=== PATIENT | male | born 1985 | race Caucasian/White ===

== ENCOUNTER 2019-06-18 19:45 | Inpatient (IN) | payer MEDICAID ==
[~2019-06-18] VITALS: Ht 172.7 cm; Wt 87.5 kg
[2019-06-18 20:03] VITALS: Ht 172.7 cm; Wt 87.5 kg
[2019-06-18 20:50] LABS: BASOPHIL % 0 % (0-2); PLATELET COUNT 309 x10^3mcL (130-400); RED CELL DISTRIBUTION WIDTH 21.1 % (11.5-14.5)
[2019-06-18] MEDS ORDERED: LEVO-T75 MCG PO (21:00)
[2019-06-18] MEDS ORDERED: MSC15 PO (21:01)
[2019-06-18 21:02] LABS: rbc morphology (normal/abnorm) ABNORMAL (NORMAL)
[2019-06-18] MEDS ORDERED: ACETAMINOPHEN500 M5 PO (21:03)
[2019-06-18 21:06] LABS: CALCIUM 8.4 mg/dL (8.5-10.1); CARBON DIOXIDE 27.8 mmol/L (21-32); CHLORIDE SERUM 102 mmol/L (98-107); CREATININE SERUM 1.2 mg/dL (0.7-1.3); GFR1 > 60 mL/min; GLUCOSE SERUM 135 mg/dL (74-106); POTASSIUM SERUM 4.7 mmol/L (3.5-5.1); SODIUM SERUM 134 mmol/L (136-145)
[2019-06-18 21:10] LABS: ALKALINE PHOSPHATASE 139 U/L (46-116); ALT/SGPT 12 U/L (16-63); AMYLASE 47 U/L (25-115); AST/SGOT 27 U/L (15-37); BILIRUBIN TOTAL 0.26 mg/dL (0.20-1.00); LIPASE 408 IU/L (73-393)
[2019-06-18 21:15] LABS: TOTAL PROTEIN, SERUM 5.9 g/dL (6.4-8.2)
[2019-06-18 23:58] LABS: CHOLESTEROL/HDL RATIO 3.4
[2019-06-19] VITALS (7 sets, daily range): BP systolic 99–114; BP diastolic 52–69
[2019-06-19 00:03] LABS: FREE T4 0.83 ng/dL (0.76-1.46); T3 TOTAL 0.41 ng/mL; T4(THYROXINE) 5.7 ug/dL (4.7-13.3)
[2019-06-19] MEDS ORDERED: FUROSEMIDE20 MG PO (05:54)
[2019-06-19] MEDS ORDERED: MORPHINE SULFAT30 M2 PO (05:54)
[2019-06-19 07:18] LABS: PLATELET COUNT 298 x10^3mcL (130-400)
[2019-06-19 07:37] LABS: CARBON DIOXIDE 27.2 mmol/L (21-32); CHLORIDE SERUM 101 mmol/L (98-107); CREATININE SERUM 1.2 mg/dL (0.7-1.3); GFR1 > 60 mL/min; GLUCOSE SERUM 108 mg/dL (74-106); POTASSIUM SERUM 5.4 mmol/L (3.5-5.1); SODIUM SERUM 134 mmol/L (136-145)
[2019-06-19 07:49] LABS: BASOPHIL % 0 % (0-2); RED CELL DISTRIBUTION WIDTH 20.9 % (11.5-14.5)
[2019-06-19 08:19] LABS: CALCIUM 8.8 mg/dL (8.5-10.1)
[2019-06-19 16:08] LABS: microscopic required? NO
[2019-06-19 16:24] LABS: UA SPECIFIC GRAVITY >=1.030 (1.005-1.035); urine erythrocyte NEGATIVE (NEGATIVE)
[2019-06-19 16:40] LABS: AMPHETAMINE QUAL UR NONE DETECTED (See below)
== END 2019-06-19 19:10 | disposition home or self-care (01) | DRG 343 ==
LOC: ED 19:45 → MU 22:29
PROVIDERS: Emergency Medicine; ADMIT Internal Medicine
PROC: 0W9G3ZZ Drainage of Peritoneal Cavity, Percutaneous Approach (ICD-10-PCS; principal; 2019-06-19)
DX: C41.9 Malignant neoplasm of bone and articular cartilage, unspecified (principal); R18.0 Malignant ascites; C78.6 Secondary malignant neoplasm of retroperitoneum and peritoneum; E03.9 Hypothyroidism, unspecified; Z79.899 Other long term (current) drug therapy; Z68.26 Body mass index [BMI] 26.0-26.9, adult
CPT/HCPCS: 49083; 83880; 84439; C1729; C9113; G0378; J2001; J2060; J2270; J2765; J3010; J7050; Q0092

== ENCOUNTER 2019-06-21 13:45 | Inpatient (IN) | payer MEDICAID ==
[~2019-06-21] VITALS: Ht 170.2 cm; Wt 86.4 kg
[~2019-06-21 13:45] MED LIST: ACETAMINOPHEN500 M5 PO; FUROSEMIDE20 MG PO; LEVO-T75 MCG PO; MORPHINE SULFAT30 M2 PO; MSC15 PO
[2019-06-21 14:44] LABS: PLATELET COUNT 200 x10^3mcL (130-400)
[2019-06-21 14:53] LABS: RED CELL DISTRIBUTION WIDTH 21.5 % (11.5-14.5)
[2019-06-21 15:28] LABS: CALCIUM 7.9 mg/dL (8.5-10.1); CARBON DIOXIDE 28.1 mmol/L (21-32); CHLORIDE SERUM 101 mmol/L (98-107); CREATININE SERUM 1.2 mg/dL (0.7-1.3); GFR1 > 60 mL/min; GLUCOSE SERUM 100 mg/dL (74-106); POTASSIUM SERUM 4.7 mmol/L (3.5-5.1); SODIUM SERUM 136 mmol/L (136-145)
[2019-06-21 15:33] LABS: ALKALINE PHOSPHATASE 97 U/L (46-116); ALT/SGPT 18 U/L (16-63); AMYLASE 45 U/L (25-115); AST/SGOT 55 U/L (15-37); BILIRUBIN TOTAL 0.22 mg/dL (0.20-1.00); LIPASE 331 IU/L (73-393)
[2019-06-21 15:36] LABS: ALBUMIN 1.4 g/dL (3.4-5.0); TOTAL PROTEIN, SERUM 4.9 g/dL (6.4-8.2)
[2019-06-21 15:37] LABS: BAND NEUTROPHIL 13 % (0-10); BASOPHIL 0 % (0-2); MONOCYTE 3 % (0-7); SEGMENTED NEUTROPHILS 78 % (37-75); rbc morphology (normal/abnorm) ABNORMAL (NORMAL)
[2019-06-21 15:38] LABS: PLATELET MORPHOLOGY PLATELETS NORMAL
[2019-06-21 17:07] LABS: UA SPECIFIC GRAVITY >=1.030 (1.005-1.035); microscopic required? YES; urine erythrocyte NEGATIVE (NEGATIVE)
--- NOTE | 2019-06-21 19:09 | NUR ---
PT WITH PARACENTISIS COMPLETED AT 1800. SEE MD CHARTING. PT WITH 1300ML OF ASPIRATED FLUID.
--- NOTE | 2019-06-21 19:10 | NUR ---
REPORT GIVEN TO GREETING CARD EDITOR RN. PT CONTINUES TO EXPERIENCE PROBLEMS WITH THE BP, WITH A 86/43. WASHING MACHINE ASSEMBLER NOTIFIED OF THE LOW BP. ADMITTING WAS CONTACTED FOR A STAT CONSULT REGARDING BP. PT IS AOX4, RESP E/U. SKIN IS WARM AND DRY.
--- NOTE | 2019-06-21 19:20 | NUR ---
CALLED AND SPOKE TO DR QUARLES ABOUT PT BP 80/38 AND TEMPERATURE OF 101.4. PER MD QUARLES PT WILL BE ADMITTED TO ICU. PER MD QUARLES BECAUSE PT RECEIVED 1000 MG OF TYLENOL ALREADY, INITIATE COOLING MEASURES AT THIS TIME. ICE PACKS APPLIED, CLOTHING REMOVED, MULTIPLE BLANKETS REMOVED. PER MD QUARLES HE WILL CALL THE ADOPTION SPECIALIST RESIDENT TO COME SEE PT IN ED. PT AWAKE AND ALERT, ANSWERING QUESTIONS APPROPRIATELY AND FOLLOWING COMMANDS, PT APPEARS WEAK BUT IS ABLE TO MOVE ALL EXTREMITIES. IV INTACT AND FLUSHING WITH NO COMPLICATIONS. BREATHING EVEN AND UNLABORED. WILL CONTINUE TO MONITOR.
[2019-06-21] MEDS ORDERED: ZOFRAN8 MG PO (19:40)
[2019-06-21] MEDS ORDERED: LASIX20 MG PO (19:40)
[2019-06-21] MEDS ORDERED: BACTRIM DS1 TAB PO (19:41)
[2019-06-21] MEDS ORDERED: MORPHABOND ER30 MG PO (19:42)
[2019-06-21] MEDS ORDERED: CLARITIN LIQUI-10 MG PO (19:42)
[2019-06-21] MEDS ORDERED: MS CONTIN15 M1 PO (19:43)
[2019-06-21] MEDS ORDERED: COMPAZINE10 M1 PO (19:43)
[2019-06-21] MEDS ORDERED: SYN15 PO (19:44)
[2019-06-21] MEDS ORDERED: TYL650S PO (19:45)
[2019-06-21] MEDS ORDERED: DIPHENOX/ATROPI1 TA1 PO (19:45)
[2019-06-21] MEDS ORDERED: TIROSINT75 MC1 PO (19:46)
[2019-06-21] MEDS ORDERED: PANTOPRAZOLE SO20 M1 PO (19:46)
[2019-06-21] MEDS ORDERED: IMODIUM A-D2 M4 PO (19:47)
[2019-06-21 19:52] LABS: T3 TOTAL 0.24 ng/mL
[2019-06-21 19:53] LABS: FREE T4 0.61 ng/dL (0.76-1.46)
[2019-06-21 19:54] LABS: FREE THYROXINE INDEX 1.3 ug/dL (1.4-4.5); T4(THYROXINE) 3.5 ug/dL (4.7-13.3)
--- NOTE | 2019-06-21 19:57 | NUR ---
CALLED AND SPOKE TO MD PERALES ABOUT CENTRAL LINE PLACEMENT. PER MD PERALES PT CAN RECIEVED ICE CHIPS AT THIS TIME. PER MD PERALES HE WILL COME DOWN TO SEE PATIENT IN ED.
--- NOTE | 2019-06-21 20:16 | NUR ---
MD DEL CIDED AT BEDSIDE SPEAKING WITH PATIENT ABOUT CENTRAL LINE PLACEMENT WITH USE OF CURLING MACHINE OPERATOR SERVICES.
--- NOTE | 2019-06-21 20:18 | NUR ---
CONSENT SIGNED FOR CENTRAL LINE PLACEMENT. CONSENT WITNESSED BY MYSELF, SIGNED BY MD PERALES AND PLACED IN PT CHART
[2019-06-21 20:20] LABS: APPEARANCE FLUID HAZY; SOURCE FLUID ASCITES
[2019-06-21 20:21] LABS: COLOR FLUID DARK YELLOW; RBC FLUID 6405 /cumm; WBC FLUID 1920 /cumm
--- NOTE | 2019-06-21 21:01 | NUR ---
CENTRAL LINE IN PLACE AND FLUSHES WITH NO COMPLICATIONS. CENTRAL LINE TO R NECK. NO BLEEDING NOTED.
--- NOTE | 2019-06-21 21:30 | NUR ---
RECEIVED TRANSFER REPORT FROM MARYCRUZ MCDONADL. QUESTIONS ANSWERED.
--- NOTE | 2019-06-21 21:30 | NUR ---
XRAY AT BEDSIDE FOR CENTRAL LINE PLACEMENT VERIFICATION
[2019-06-21 21:36] LABS: LYMPHOCYTE FLUID 13 %; MONOCYTE FLUID 5 %
--- NOTE | 2019-06-21 21:36 | NUR ---
LEVOPHED TITRATED FROM 2MCG/MIN TO 4MCG/MIN PER MD ORDER.
--- NOTE | 2019-06-21 21:43 | NUR ---
LEVOPHED TITRATED TO 6 MCG/MIN PER PROTOCOL FOR PT BP 85/41 MAP 41
--- NOTE | 2019-06-21 21:44 | NUR ---
REPORT GIVEN TO SVEN AT EXT [id number]
--- NOTE | 2019-06-21 21:52 | NUR ---
PT TRANSFERED TO ICU AT THIS TIME. PT AWAKE AND ALERT, ANSWERING QUESTIONS APPROPRIATELY. PT BREATHING EVEN AND UNLABORED. PT VERBALIZED UNDERSTANDING OF PLAN OF CARE. TRANSPORT CM IN PLACE. IV FLUIDS RUNNING AT ORDERED RATE WITH NO COMPLICATIONS. LEVOPHED AND VANCOMYCIN ENDORSED TO SVEN RN IN ICU. PT REMAINS ON 2L VIA O2 AT THIS TIME. CENTRAL LINE IN PLACE AND AWAITING VERIFICATION OF PLACEMENT. SVEN RN AT BEDSIDE TO ASSUME CARE OF PT AT THIS TIME. PT TRANSPORTED VIA [facility] BY MYSELF AND NATHALY BATES.
--- NOTE | 2019-06-21 22:18 | NUR ---
PT ARRIVED FROM ED ACCOMPANIED BY RN AND TRAINING LEAD. PT ON 2L/MIN NC. RIJ CVC IN PLACE, DRESSING CDI. RAC AND LAC PERIPHERAL IV INTACT, PATENT, DRESSING CDI. PT ON LEVOPHED 6MCG/MIN AND VANCOMYCIN AT 166ML/HR. PT AOX4 ABLE TO MAKE NEEDS KNOWN. PT SPEAKS [place] AND A LITTLE OF [place]. PT HAS DISTENDED STOMACH AND +2 EDEMA ON BLE. PT ON CONTINOUS MILL TENDER SECOND OPERATOR WITH STA. PT HAS RIGHT LOWER ABDOMINAL QUADRANT INCISION THAT IS COVERED WITH DRESSING AND TAPE FROM THE PARACENTESIS PROCEDURE IN ER. BOWEL SOUNDS HYPOACTIVE. PT VOIDS FREELY. PT C/O 6/10 PAIN ON ABDOMEN. PT ABLE TO REPOSITION SELF IN BED. WILL CONTINUE TO MONITOR.
[2019-06-21 22:37] LABS: AMPHETAMINE QUAL UR NONE DETECTED (See below)
[2019-06-21 22:43] VITALS: BP 100/52
--- NOTE | 2019-06-21 22:45 | NUR ---
DR. PERALES AT BEDSIDE. GAVE NURSING UPDATE. DR. PERALES WILL RETRACT THE RIJ CENTRAL LINE.
[2019-06-21 23:00] VITALS: BP 87/55
--- NOTE | 2019-06-21 23:06 | NUR ---
BLOOD PRESSURE OF 87/55 (64). TITRATED LEVOPHED TO 8MCG/MIN. WILL CONTINUE TO MONITOR.
--- NOTE | 2019-06-21 23:07 | NUR ---
X-RAY TECH AT BEDSIDE PERFORMING X-RAY FOR RIJ CENTRAL CATH PLACEMENT.
--- NOTE | 2019-06-21 23:30 | NUR ---
BP OF 98/56 (68). TITRATED LEVOPHED TO 10MCG/MIN. WIILL CONTINUE TO MONITOR.
--- NOTE | 2019-06-21 23:54 | NUR ---
DR. YE AT BEDSIDE. GAVE NURSING UPDATE. DR. YE WILL ORDER OK TO USE FOR CENTRAL LINE.
--- NOTE | 2019-06-21 23:54 | NUR ---
DR. MARTIN AT [facility]. GAVE NURSING UPDATE. DR. MARTIN ORDERED VANCOMYCIN PER PHARMACY
[2019-06-22 03:09] VITALS: BP 96/82
--- NOTE | 2019-06-22 03:24 | NUR ---
MODERATE SEROSANGUINEOUS DISCHARGE NOTED ON RIGHT LOWER ABDOMINAL QUADRANT DRESSING FROM THE PARACENTESIS. NOTIFIED DR. PERALES. NNO. I CHANGED THE DRESSING WITH STERILE GAUZE AND TAPE FOR PRESSURE.
--- NOTE | 2019-06-22 03:26 | NUR ---
PT RESTING WELL. NO S/SX OF DISTRESS. WILL CONTINUE TO MONITOR.
--- NOTE | 2019-06-22 05:23 | NUR ---
CUSTOMER AGENT AT BEDSIDE. I ASSIST IN BLOOD DRAW.
[2019-06-22 06:06] LABS: BASOPHIL % 0.1 % (0-2); PLATELET COUNT 193 x10^3mcL (130-400)
[2019-06-22 06:07] LABS: RED CELL DISTRIBUTION WIDTH 21.5 % (11.5-14.5)
[2019-06-22 06:08] LABS: CALCIUM 7.2 mg/dL (8.5-10.1); CARBON DIOXIDE 23.4 mmol/L (21-32); CHLORIDE SERUM 103 mmol/L (98-107); CREATININE SERUM 0.9 mg/dL (0.7-1.3); GFR1 > 60 mL/min; GLUCOSE SERUM 122 mg/dL (74-106); PHOSPHOROUS 3.7 mg/dL (2.5-4.9); POTASSIUM SERUM 3.6 mmol/L (3.5-5.1); SODIUM SERUM 135 mmol/L (136-145)
--- NOTE | 2019-06-22 06:30 | NUR ---
SEROSANGUINEOUS DISCHARGE FROM PARACENTESIS INCISION NOTED. WILL NOTIFY DR. PERALES ABOUT THE AMOUNT OF DISCHARGE. THE TOWEL PLACED UNDER THE INCISION IS SOAKED WITH THE DISCHARGE.
--- NOTE | 2019-06-22 06:38 | NUR ---
SPOKE TO DR. PERALES, GAVE NURSING UPDATES. HE STATES THAT HE WILL WAIT ON THE ULTRASOUNDS EVAL FOR THE ASCITES BEFORE ORDERING ANOTHER PARACENTESIS.
--- NOTE | 2019-06-22 06:59 | NUR ---
DR. AN AT BEDSIDE. GAVE NURSING UPDATES. DR. AN STATES THAT SHE WILL ORDER THE PARACENTESIS.
--- NOTE | 2019-06-22 07:13 | NUR ---
GAVE NURSING CHANGE OF SHIFT REPORT TO LIZANDRO MIMS RN. ITZEL HICKMAN, QUESTIONS ANSWERED.
[2019-06-22 08:00] VITALS: BP 94/56
--- NOTE | 2019-06-22 10:07 | NUR ---
RECEIVED REFORT FROM AUTOMOTIVE PARTS COUNTER ASSOCIATE NURSE, TAMARA RUANO. PATIENT ALERT AND ORIENTED X4. RESPIRATORY EVEN AND UNLABORED. CONTINUE ON LEVOPHED DRIP 10MCG/MIN. V/S 97.3 90 18 BP 102/71 MMHG. CALL LIGHT WITHIN REACH. WILL CONTINE TO MONITOR.
--- NOTE | 2019-06-22 12:19 | NUR ---
PATIENT'S HOME MEDICATIONS SENT TO PHARMACY TO BE STORED. COPIES OF PATIENT'S HOME MEDICATIONS ARE IN THE CHART.
--- NOTE | 2019-06-22 17:43 | NUR ---
CHANGED DRESSING TO PARACENTESIS SITE LEAKING X3. NO FEVER . CONTINUE ON LEVOPHED DRIO 10MCG/MIN (37.5 ML/HR) BP 102/69. US ABDOMEN RESULTS MINIMAL ASCITES. LIKELY METASTATIC LESIONS THROUGHOUT UPPER ABDOMEN. NO C/O PAIN. RESTING IN BED. PROVIDED COMFORT AND SAFETY.
--- NOTE | 2019-06-22 18:26 | NUR ---
NIBP 111/79 MAP 89. LEVOPHED DRIP TITRATED DOWN TO 8 MCG/MIN. LIZANDRO, PRIMARY RN MADE AWARE. WILL CONTINUE TO MONITOR.
--- NOTE | 2019-06-22 19:00 | NUR ---
RECEIVED CHANGE OF SHIFT REPORT FROM LIZANDRO MCDONALD. PT IS AOX4. PT ON ROOM AIR. PT HAS RIJ CENTRAL LINE WITH LAC AND RAC PERIPHERAL LINE. PT HAS +2 EDEMA NOTED ON BLE AND DISTENDED AND FIRM ABDOMEN. PT ON LEVOPHED INFUSING AT 8MCG/MIN. PT HAS DRESSING ON RIGHT LOWER ABDOMEN THAT IS STILL LEAKING SEROSANGUINEOUS FLUIDS. PT ON REGULAR DIET. PT VOIDS FREELY. PT C/O PAIN ON ABDOMEN 09/30. PT ON CONTINUOUS CARDIAC AND PULSE OX MONITOR. WILL CONTINUE TO MONITOR.
[2019-06-22 19:10] VITALS: BP 110/75
--- NOTE | 2019-06-22 21:00 | NUR ---
DR. MARTIN AT BEDSIDE. GAVE NURSING UPDATES. NNO AT THIS TIME.
--- NOTE | 2019-06-22 22:38 | NUR ---
PT DRESSING ON RLQ ABDOMEN IS PRODUCING COPIOUS AMOUNT OF SEROUS DRAINAGE. I CHANGE THE DRESSING AND APPLIED NEW GAUZE WITH TAPE. I ALSO SECURED SOME TOWEL UNDERNEATH THE DRESSING AND CHUCKS.
[2019-06-22 23:37] VITALS: BP 105/75
--- NOTE | 2019-06-22 23:59 | NUR ---
PT RESTING IN BED. NO S/SX OF DISTRESS. WILL CONTINUE TO MONITOR.
--- NOTE | 2019-06-23 00:27 | NUR ---
NIBP OF 100/69 (79). TITRATED LEVOPHED TO 6MCG/MIN. WILL CONTINUE TO MONITOR.
--- NOTE | 2019-06-23 00:34 | NUR ---
PATIENT RIGHT LOWER ABDOMEN DRESSING IS SOAKED WITH DRAINAGE FROM THE PARACENTESIS INCISION. I CHANGE THE DRESSING AND APPLIED NEW TOWEL. WILL CONTINUE TO MONITOR.
--- NOTE | 2019-06-23 03:20 | NUR ---
PT HAS 1 LOOSE BOWEL MOVEMENT. BROWN COLOR.
--- NOTE | 2019-06-23 03:25 | NUR ---
COPIOUS SEROUS DISCHARGE FROM INCISION ON RIGHT LOWER ABDOMEN FROM PARACENTESIS. PT STOMACH IS DISTENDED AND FIRM. I CHANGED THE DRESSING WITH STERILE GAUZE AND TAPE. WILL CONTINUE TO MONITOR.
[2019-06-23 03:48] VITALS: BP 106/79
--- NOTE | 2019-06-23 03:56 | NUR ---
BLOOD PRESSURE OF 114/76 (90). TITRATED LEVOPHED TO 4MCG/MIN. WILL CONTINUE TO MONITOR.
[2019-06-23 05:12] LABS: ALKALINE PHOSPHATASE 89 U/L (46-116); ALT/SGPT 17 U/L (16-63); AST/SGOT 53 U/L (15-37); BILIRUBIN TOTAL 0.12 mg/dL (0.20-1.00); CALCIUM 7.3 mg/dL (8.5-10.1); CARBON DIOXIDE 23.5 mmol/L (21-32); CHLORIDE SERUM 101 mmol/L (98-107); CREATININE SERUM 0.9 mg/dL (0.7-1.3); GFR1 > 60 mL/min; GLUCOSE SERUM 117 mg/dL (74-106); PHOSPHOROUS 2.7 mg/dL (2.5-4.9); SODIUM SERUM 133 mmol/L (136-145)
[2019-06-23 05:16] LABS: TOTAL PROTEIN, SERUM 4.5 g/dL (6.4-8.2)
[2019-06-23 05:55] LABS: PLATELET COUNT 138 x10^3mcL (130-400)
[2019-06-23 05:58] LABS: RED CELL DISTRIBUTION WIDTH 20.8 % (11.5-14.5)
[2019-06-23 06:01] LABS: BASOPHIL % 0 % (0-2)
--- NOTE | 2019-06-23 06:15 | NUR ---
DR. DEL RIO AT BEDSIDE. GAVE NURSING UPDATE. DR. DEL RIO WILL ORDER NEW ORDERS.
--- NOTE | 2019-06-23 07:24 | NUR ---
GAVE NURSING REPORT TO TRIXIE MCDONALD. QUESTIONS ANSWERED. ENDORSED CARE.
[2019-06-23 08:00] VITALS: BP 103/76; BP 163/76
--- NOTE | 2019-06-23 08:25 | NUR ---
PT'S BP 102/71 (83), TITRATE DOWN LEVOPHED FROM 4 MCG/MIN TO 3 MCG/MIN.
--- NOTE | 2019-06-23 08:49 | NUR ---
LATE ENTRY 0745-REPORT TAKEN FROM BLOWING ENGINEER NURSE, PATIENT FOUND TO BE AWAKE AND ALERT ORIENTED X 4 ON ROOM AIR. RIGHT IJ CL IN PLACE RUNNING LEVOPHED AT 4MCG/MIN, VITALS STABLE, ABD DISTENDED AND FIRM AND PATIENT REPORTS PAIN, DRESSING TO RIGHT AND LEFT OF ABD VISUALIZED. RIGHT ABD DRESSING FOUND TO BE SOILED WITH SEROUS DRAINAGE. WILL CONTINUE TO MONITOR AND ASSESS.
--- NOTE | 2019-06-23 09:42 | NUR ---
PT'S BP 97/74 (81), HR 118, TITRATE DOWN LEVOPHED FROM 2 MCG/MIN TO 1 MCG/MIN.
--- NOTE | 2019-06-23 10:29 | NUR ---
PT'S BP 102/75 (81), HR 113. STOP LEVOPHED. ALBUMIN IS GIVEN PER ORDER.
[2019-06-23 11:32] VITALS: BP 99/71
--- NOTE | 2019-06-23 11:57 | NUR ---
DURING NOON ASSESSMENT, PATIENT REPORTS HEARTBURN AND EPIGASTRIC PAIN, WILL PAGE PROVIDER FOR POSSIBLE GI MEDICATION. ALSO, RIGHT ABD DRESSING FOUND TO BE SOAKED WITH SEROUSANGUINEOUS FLUID. SKIN AROUND DRESSING INTACT. DRESSING CHANGED AT THIS TIME, PATINET TOLERATED WELL, WILL CONTINUE TO MONITOR.
--- NOTE | 2019-06-23 12:22 | NUR ---
PEPCID IV ORDERED FOR ABD PAIN AND HEARTBURN, WILL ADMINISTER AND CONTINUE TO MONITOR.
[2019-06-23 16:00] VITALS: BP 101/70
--- NOTE | 2019-06-23 17:28 | NUR ---
COLOSTOMY BAD APPLIED TO RIGHT ABD PARACENTESIS SITE TO COLLECT DRAINAGE.
--- NOTE | 2019-06-23 18:36 | NUR ---
CALLED RECEIVED FROM PATIENT'S DOCTOR IN [place]. DR. ANAYA WOULD LIKE A DOCTOR TO CALL AND UPDATE ON PATIENT. PHONE NUMBER IS [phone].
--- NOTE | 2019-06-23 19:24 | NUR ---
REPORT GIVEN TO BAG MAKING MACHINE OPERATOR NURSE, PATIENT RESTING AT TIME OF REPORT BUT WOKE FOR REPORT, CARE ENDORSED TO BAG MAKING MACHINE OPERATOR.
--- NOTE | 2019-06-23 19:35 | NUR ---
RECEIVED PT FROM DAYSFLFT NURSE, NO ACUTE DISTRESS NOTED. PT AOX4, DENIES SANTIZO/DIZZINESS. PT ABLE TO MAKE NEEDS KNOWN. RESP EVEN AND UNLABORED ON RA, DENIES SOB. CTA BILAT. PULSES PALPABLE BUE, WEAK PEDAL PULSES D/T 3+ PITTING EDEMA BLE, SCDS ON. PT ST ON THE MONITOR HR= 101, DENIES CP. PT REMAINS AFEBRILE. PT S/P PARACENTHESIS (06/20) IN ER WITH 1300ML OUT, PT HAD EXCESSIVE LEAKING FROM SITE TO WHICH A COLOSTOMY BAG WAS PLACED OVER SITE TO COLLECT DRAINAGE AND MONITOR OUT EMPTIED 350ML OF SEROSANGANEOUS FLUID FROM BAG AT BEGINNING OF SHIFT. WILL CONTINUE TO MONITOR OUTPUT FOR CONTINUITY OF CARE. SKIN CDI AROUND SITE. PT WITH DSG )AMARI AND CLEAR DSG) TO LEFT ABD FROM A CHEMO TREATMENT, PER ONCOLOGY DR NURSING STAFF TO NOT TOUCH DSG. DSG CDI. NO DRAINAGE NOTED. PT WITH A ROUND/DISTENDED ABD, HX OF STOMACH CANCER. DENIES NAUSEA AT THIS TIME. LAC/RAC PERIPHERAL LINES PATENT, NO REDNESS, SWELLING OR PAIN NOTED. PT WITH RIJ CVC DSG CDI, ALL PORTS PATENT. PT VOIDS IN URINAL DENIES DYSURIA. ALL COMFORT AND SAFETY MEASURES PROVIDED FOR, CALL LIGHT WITHIN REACH, BED IN LOWEST POSITION, WILL CONTINUE TO MONITOR.
[2019-06-23 19:45] VITALS: BP 105/64
--- NOTE | 2019-06-23 21:45 | NUR ---
PROVIDED PT MEDICATIONS PER ORDER, PT REPORTS PAIN UNDER CONTROL AT THIS TIME, DENIES SOB. COLOSTOMY BAG TO THE PARACENTHESIS SITE REMAINS WITH SMALL AMOUNT OF SEROSANGANEOUS FLUID, PT REMAINS ON RA. ALL COMFORT AND SAFETY MEASURES PROVIDED FOR, CALL LIGHT WITHIN REACH, BED IN LOWEST POSITION, WILL CONTINUE TO MONITOR.
--- NOTE | 2019-06-23 23:15 | NUR ---
EMPTIED 725ML OF SEROSANGANEOUS FLUID FROM COLOSTOMY BAG COVERING PARACENTHESIS SITE. PT TOLERATED WELL, PT REMAINS AFEBRILE ON RA, DENIES SOB. VSS: BP: 98/65(65), HR 98, T:98.6F, RR= 16, O2 SAT= 98% RA. ALL COMFORT AND SAFETY MEASURES PROVIDED FOR, CALL LIGHT WITHIN REACH, BED IN LOWEST POSITION, WILL CONTINUE TO MONITOR.
[2019-06-23 23:45] VITALS: BP 98/65
--- NOTE | 2019-06-24 | NUR ---
PT RESTING IN BED, WITH EYES CLOSED, NO S/S OF PAIN/DIZCOMFORT NOTED. RESP EVEN AND UNLABORED ON RA, NO S/S OF SOB. SR-ST. 95-102, NO S/S OF CP NOTED. PULSES PALPABLE BILAT UE, WEAK PEDAL PULSES. 3+ PITTING EDEMA BLE. SCDS ON. CURRENT TOTAL EMPTIED FROM COLOSTOMY BAG DRAINAGE PARACENTHESIS SITE= 1075CC SEROSANGANEOUS FLUID, PT ABLE TO REQUEST THE BAG EMTPIED. TOLERATED WELL. PT HAS NOT URINATED SINCE BEGINNING OF SHIFT. NO BM YET. IV SITE TO THE LAC/RAC PATENT, NO REDNESS, SWELLING OR PAIN NOTED. RIJ CVC PATENT, DSG CDI. CURRENTL CVP= 7. PT MEDICATED WITH MS CONTIN PO FOR PAIN MANAGEMENT. PT REQUESTED TUMS FOR ACID REFLUX, MEDICATION PROVIDED WITH GOOD RESULTS. ALL COMFORT AND SAFETY MEASURES PROVIDED FOR, CALL LIGHT WITHIN REACH, BED IN LOWEST POSITION, WILL CONTINUE TO MONITOR.
--- NOTE | 2019-06-24 04:00 | NUR ---
PT RESTING IN BED, WITH EYES CLOSED, NO S/S OF PAIN NOTED. PT USED CALL LIGHT THREE TIMES TO ASK FOR COLOSTOMY BAG OVER PARACENTHESIS SITE TO BE DRAINED. EMPTIED 1425CC OF SEROGANEOUS FLUID, PT TOLERATED WELL. PT VOIDED IN URINAL A SMALL AMOUNT, 450ML. YELLOW. PT REMIANS ON RA, DENIES SOB. PT REQUESTING TO HAVE HIS THROID MEDICATION GIVEN FIRST, WAIT 30 MINS AND THEN PT WILL TAKE OTHER PILLS. PT STATES THESE WERE HIS RECOMMENDATIONS FROM HIS ONCOLOGIST. WILL FOLLOW THROUGH WITH ORDERS AND ENDORSE TO DAYSHIFT FOR CONTINUITY OF CARE. SKIN AROUND COLOSTOMY BAG DRAINING PARACENTHESIS SITE REMAINS CDI, NO ERYTHEMA NOTED. IV SITE LAC/RAC PATENT, NO REDNESS, SWELLING OR PAIN NOTED. RIJ CVC PATENT, CVP= 8. PT REPORTS PAIN UNDER CONTROL AT THIS TIME. NO BM DURING SHIFT, ALL COMFORT AND SAFETY MEASURES PROVIDED FOR, CALL LIGHT WITHIN REACH, BED IN LOWEST POSITION, WILL CONTINUE TO MONITOR.
[2019-06-24 04:45] VITALS: BP 97/62
--- NOTE | 2019-06-24 05:00 | NUR ---
PT RESTED IN INTERVALS DURING SHIFT, NO ACUTE CHANGES OCCURRING OVERNIGHT. PT REMAINS ON RA, DENEIS SOB. PT ABLE TO MAKE NEEDS KNOWN, EMPTIED 1425 OF SEROSANGANEOUS FLUID VIA COLOSTOMY WHICH DRAINS PARACENTHESIS SITE. PT TOLERATED WELL. PT REMAINS AFEBRILE. NO BM DURING SHIFT. ALL COMFORT AND SAFETY MEASURES PROVIDED FOR, CALL LIGHT WIHTIN REACH, BED IN LOWEST POSITION, WILL CONTINUE TO MONITOR.
[2019-06-24 05:07] LABS: ALKALINE PHOSPHATASE 65 U/L (46-116); ALT/SGPT 9 U/L (16-63); AST/SGOT 46 U/L (15-37); BILIRUBIN TOTAL 0.19 mg/dL (0.20-1.00); CALCIUM 7.3 mg/dL (8.5-10.1); CHLORIDE SERUM 102 mmol/L (98-107); CREATININE SERUM 0.9 mg/dL (0.7-1.3); GFR1 > 60 mL/min; GLUCOSE SERUM 108 mg/dL (74-106); POTASSIUM SERUM 4.3 mmol/L (3.5-5.1); SODIUM SERUM 133 mmol/L (136-145)
[2019-06-24 05:08] LABS: BASOPHIL % 0 % (0-2); PLATELET COUNT 106 x10^3mcL (130-400); RED CELL DISTRIBUTION WIDTH 20.4 % (11.5-14.5)
[2019-06-24 05:11] LABS: ALBUMIN 1.3 g/dL (3.4-5.0); TOTAL PROTEIN, SERUM 4.4 g/dL (6.4-8.2)
[2019-06-24 05:12] LABS: MAGNESIUM 2.1 mg/dL (1.8-2.4); PHOSPHOROUS 2.5 mg/dL (2.5-4.9)
[2019-06-24 07:45] VITALS: BP 98/54
--- NOTE | 2019-06-24 08:10 | NUR ---
AT 0715 - RECEIVED PATIENT FROM NIGHT NURSE. AWAKE, ALERT AND ORIENTED X 4. MONITOR SHOWING SINUS TACHYCARDIA; RATE 106. NO ECTOPIES NOTED. RESPIRATIONS REGULAR ON ROOM AIR. IV INFUSING D5 1/2NS AT 50 ML/HR VIA RIJ CENTRAL LINE. BP 98/54 (68). OFF LEVOPHED. ABDOMEN DISTENDED WITH LIGHTLY BLOOD STAINED SEROUS FLUID DRAINING FROM PERITONEUM WHICH HAS A COLOSTOMY BAG. EMPTIED 400 ML. AT 0740 - C/O NAUSEA AND MEDICATED WITH ZOFRAN. PATIENT NOT INTERESTED IN BREAKFAST AT THIS TIME.
--- NOTE | 2019-06-24 08:24 | NUR ---
RECEIVED ORDER FOR ABDOMINAL UNTRASOUND. PATIENT WILL BE NPO AFTER BREAKFAST.
--- NOTE | 2019-06-24 09:17 | NUR ---
ULTRASOUND AT BEDSIDE. U/S FOR EVALUATION OF FLUID ONLY. NO NEED FOR NPO. SCHEDULED DOSE OF VANCOMYCIN IN PROGRESS AT THIS TIME.
--- NOTE | 2019-06-24 09:48 | NUR ---
RECEIVED ORDERS FOR PATIENT TO TRANSFER TO TELEMETRY UNIT. AWAITING BED ALLOCATION.
--- NOTE | 2019-06-24 10:40 | NUR ---
DR COWART AND MEDICAL TEAM AT BEDSIDE. PLAN FOR PATIENT TO DISCHARGE HOME WITH HOME HEALTH AND FOLLOW UP WITH HIS ONCOLOGIST.
--- NOTE | 2019-06-24 11:02 | NUR ---
RECEIVED ORDER FOR US GUIDED PARACENTESIS DRAIN PLACEMENT. ASCITES EVAL DONE AND REVIEWED BY DR SÁNCHEZ WHO DID PARACENTESIS ON 06-18. PER DR SÁNCHEZ, A DRAIN IS NOT RECOMMENDED AT THIS TIME. WHAT IS RECOMMENDED IS A PRESSURE DRESSING TO THE NEEDLE SITE, OR PRIMARY CARE TEAM TO USE STERI STRIPS OR GLUE TO CLOSE THE PUNCTURE SITE. RELAYED THE MESSAGE TO PATIENT'S NURSE REYNA. ELIZABETH MONROY AND PATO SMITH ALSO CONFERRING ON SITUATION. ORDERING PHYSICIAN REQUESTING TO SPEAK WITH INTERVENTIONAL RADIOLOGIST, RELAYED HER CONTACT INFORMATION TO DR MONROY ALONG WITH THE REQUEST THAT SOMEONE CALL ORDERING PHYSICIAN.
[2019-06-24 12:10] VITALS: BP 98/65
--- NOTE | 2019-06-24 13:03 | NUR ---
AT 1100 - SPOKE WITH TAMARA PITTS FROM RADIOLOGY. SHE WILL CONNECT RADIOLOGIST AND DR MCMULLEN TO DISCUSS PLAN FOR PATIENT'S PARACENTESIS SITE MANAGEMENT. AT 1300 - PATIENT HAS EATEN LUNCH. RESTING QUIETLY. PAIN UNDER CONTROL WITH SCHEDULED PO MORPHINE. BP STABLE; MAP 75. TOTAL OF 700 ML DRAINAGE FROM PARACENTESIS SITE. WAITING FOR TRANSFER TO TELEMETRY.
--- NOTE | 2019-06-24 13:40 | NUR ---
PATIENT TRANSFERRING TO TELEMETRY, 2 [place] BED 248 B. REPORT GIVEN TO TAMARA CRAIG.
--- NOTE | 2019-06-24 14:28 | NUR ---
PATIENT RECEIVED FROM ICU. PATIENT DENIES PAIN OR DISCOMFORT AT THIS TIME. ALL QUESTIONS AND CONCERNS HAVE BEEN ADDRESSED FOR THE PATIENT. A&OX4, FOLLOWS COMMANDS AND COOPERATES WELL. DENIES CHEST PAIN AT THIS TIME. LUNG SOUNDS CTA BILATERALLY, ON RA, O2 SAT 97%, DENIES SOB. R QUADRANT POUCH IS DRAINING MINIMAL SEROUS SANGUINEUOS DRAINAGE. VOIDS USING URINAL. WILL CONTINUE TO MONITOR.
[2019-06-24 15:56] VITALS: BP 93/64
--- NOTE | 2019-06-24 15:58 | NUR ---
Initial Nutrition Assessment: ICU5 JULIA RODRIGUEZ 34M HR IA Nursing trigger: N/V/D for > 3 days, admitted with potential risk diagnosis Consult: Cachexic, liver metastasis Dx: Sepsis, gastroenteritis PMHx: Harris's sarcoma, Ascites PSHx: surgical resection of Harris's sarcoma, paraspinal and pelvic Labs: (06/23) Glu 108H (A1C 5.7), AST 46H, ALT 9L Meds: D5%, lactinex, Levophed, Merrem, morphine, sulfate, Ms contin, Pro-amatine, Prilosec, reglan, sodium chloride, Synthroid, tums, Tylenol, Vancocin, Zofran Diet: Regular PO intake since admission: (06/22) L: 10%. Poor appetite d/t nausea Ht: 170.18cm/67in Wt: 86.4kg/190lbs BMI: 29.8 Bed scale: n/a IBW: 67kg/148lbs %IBW: 128% ABW: 72kg UBW: not able to obtain Age: 34 Food Allergies: not able to obtain Edema:no edema noted Last BM: colostomy bag [+]. Paracentesis on 06/19 Skin: not intact, healed incision on ABD Bakari: 15 Per H and P (06/20), pt is a 34 y/o male with PMH of Harris's Sarcoma who was BIBA to the ER for severe abdominal pain, Pain is associated with nausea and multiple episodes on NBNB vomiting. The patient is taking a trial of Chemotherapy at [facility]. He lives in [place] and comes here for his chemo and visiting his brother. He usually gets his ascites tap twice a week, last time was at [facility] on and the got 6.6 L out. Now he is complaining of dull abdominal pain, 10/10 non- radiating. with abdominal distension, scrotal swelling and swelling of both lower extremities. Otherwise he denies any fever, chills, headache, chest pain, constipation or changes in his urine. Pt H and P diagnosis: septic shock, intractable ABD pain, DVT RD Note (06/23) Per progress note (06/23), pt is currently on a clinical trial at [facility], and there was 1600ml drainage from paracentesis site. Pt was awake and sitting in bed during bedside visit. Pt did not appear to have 29.8 BMI, and high BMI may be d/t ascites (associated with large soft tissue mass encased right lobe of liver per H and P 3/30). Per pt, he knew limited amount of Irish, but he was willing to answer some simple questions. Pt reported diarrhea and denied nausea, vomiting, constipation, difficulties chewing or swallowing. Pt stated that he only had a little appetite, and he did not use any supplements at home. Pt stopped by pt's room to deliver Greenlandic version of written education, and pt was being transferred to the floor. Problem with: N/V/D/C: Diarrhea per pt Problems with: Chewing: Swallowing: none per pt Current appetite: poor per pt Recent wt change: not able to obtain %wt change: not able to obtain Vitamin/Supplement use: none per pt Special diet at home: not able to obtain Physical activity: not able to obtain Nutrition education given (specify specific nutrition education and handout given): Written educations on oncology nutrition therapy were provided to pt, and pt accepted education Food-drug interactions? Education given? n/a Estimated Nutritional Needs Based on adjusted body weight (72kg) Energy: 4113-5063 kcal/day (30-35 kcal/kg for CA on chemotherapy and sepsis) Protein: 86-108 g/day (1.2-1.5 g/kg for CA on chemotherapy and sepsis) Fluid: 2009-6341 mL/day (1 mL/kcal) Nutrition Diagnosis: 1. Increased energy and protein need r/t critical illness and increased energy expenditure a/e/b pt had sepsis and stage IV on chemotherapy. 2. Inadequate energy and protein intake r/t poor PO intake a/e/b 10% of PO intake since admission and pt reported poor appetite. Intervention 1. Recommend continue regular diet 2. Recommend ensure TID for poor PO intake. This will provide additional 1050 kcal and 60g protein. Monitor/Evaluate Goal: PO intake and supplement intake meeting at least 75% of estimated needs Monitor: PO intake, Labs, GI function, Body weight F/U in 2-3 days as high risk 4/4-5
--- NOTE | 2019-06-24 15:58 | NUR ---
1. Recommend continue regular diet 2. Recommend ensure TID for poor PO intake. This will provide additional 1050 kcal and 60g protein.
--- NOTE | 2019-06-24 18:31 | NUR ---
PATIENT DENIES ANY PAIN OR DISCOMFORT AT THIS TIME. WILL CONTINUE TO MONITOR. PATIENT IS ONLY RESTING IN BED WHILE WATCHING TELEVISION.
--- NOTE | 2019-06-24 19:15 | NUR ---
RECIEVED PT RESTING IN BED WITH NO ACUTE DISTRESS NOTED AT THIS TIME, ASSESSMENT PERFORMED AT THIS TIME, PT IS A/OX4 NO COMPLAINTS OF SANTIZO OR DIZZINESS AT THIS TIME, PT DENIES PAIN OR SOB AT THIS TIME, LUNG SOUNDS CTA, NO SOB NOTED, ABD LARGE DISTENDED, MILD SEROUSANGUINOS DRAINAGE TO THE RIGHT PARACENTESIS SITE, +2 EDEMA TO THE BLE, ALL PT NEEDS ATTENDED TO AT THIS TIME, SAFETY PRECAUTIONS IN PLACE, WILL CONTINUE TO MONITOR.
[2019-06-24 22:01] VITALS: BP 94/64
--- NOTE | 2019-06-25 00:10 | NUR ---
PT REPORTS PAIN IS AT A TOLERABLE LEVEL AND DOES NOT WANT ANY MORE MORPHINE, ALL PT NEEDS ATTENDED TO AT THIS TIME, SAFETY PRECAUTIONS IN PLACE, WILL CONTINUE TO MONIOTR
--- NOTE | 2019-06-25 02:00 | NUR ---
EMPTIED 200 ML OF SEROUSANGUINOUS FLUIDS FROM COLOSTOMY BAT ON THE PARACENTESIS SITE.
[2019-06-25 05:00] VITALS: BP 103/65
--- NOTE | 2019-06-25 05:13 | NUR ---
PT RESTED COMFORTABLY THROUGH THE NIGHT WITH NO ACUTE DISTRESS NOTED THROUGH SHIFT, PT HAD 1050 ML OUT OF DRAINAGE BAG AT THE RIGHT ABD PARACETESIS SITE, PT REFUSED SCHEDULED MORPHINE PO, NO SOB OR PAIN NOTED DURING CAREM VS REMAINED STABLE, ALL PT NEEDS ATTENDED TO THROUGH SHIFT, WILL CONTINUE TO MONITOR AND ENDORSE CARE
[2019-06-25 07:26] LABS: CALCIUM 7.6 mg/dL (8.5-10.1); CARBON DIOXIDE 26.8 mmol/L (21-32); CHLORIDE SERUM 100 mmol/L (98-107); CREATININE SERUM 1.2 mg/dL (0.7-1.3); GFR1 > 60 mL/min; GLUCOSE SERUM 108 mg/dL (74-106); MAGNESIUM 2.3 mg/dL (1.8-2.4); PHOSPHOROUS 2.4 mg/dL (2.5-4.9); POTASSIUM SERUM 4.3 mmol/L (3.5-5.1); SODIUM SERUM 131 mmol/L (136-145)
[2019-06-25 07:47] VITALS: BP 97/62
--- NOTE | 2019-06-25 08:00 | NUR ---
RECEIVED IN NO DISTRESS, AWAKE AND ALERT. VS WNL. NO C/O PAIN OR DISCOMFORT AT THIS TIME. HL PATENT. CALL LIGHT WITHIN REACH. WILL CONTINUE WITH PLAN OF CARE.
[2019-06-25 08:47] LABS: PLATELET COUNT 98 x10^3mcL (130-400); RED CELL DISTRIBUTION WIDTH 20.6 % (11.5-14.5)
[2019-06-25 08:48] LABS: BASOPHIL % 0 % (0-2)
[2019-06-25 11:48] VITALS: BP 99/61
--- NOTE | 2019-06-25 13:16 | NUR ---
PUNCTURED WOUND TO PARACENTENSIS SUTURED BY , PT TOLERATED WELL. DENIES ANY DISCOMFORT AT THIS TIME.
[2019-06-25 13:30] LABS: rbc morphology (normal/abnorm) ABNORMAL (NORMAL)
--- NOTE | 2019-06-25 15:21 | NUR ---
WOUND CARE EVALUATION NOTE: REASON FOR EVALUATION: S/P PARACENTESIS DRAINS WOUND ASSESSMENT DONE TO RLQ ABD LEAK FROM S/P PARACENTESIS SITE. A SUTURE IS IN PLACE AND SECURED. DRAIN BAG IN PLACE MILD WEEPING FLUIDS FROM THE SITE. A 2X2 GAZUE SECURED WITH TRANSPARENT DRESSING TO LLQ ABD. PER PT. DRESSING NOT TO BE TOUCHED OR CHANGE.PER PT."IT IS FOR IMMUNO-CHEMO THERAPY"
[2019-06-25 16:30] VITALS: BP 92/69
--- NOTE | 2019-06-25 18:48 | NUR ---
PT REMAINS IN NO DISTRESS, AWAKE AND ALERT. VS WNL. NO C/O PAIN OR DISCOMFORT AT THIS TIME.IVF INFUSING WELL. CALL LIGHT WITHIN REACH. WILL BE ENDORSED TO INCOMING SHIFT.
--- NOTE | 2019-06-25 19:05 | NUR ---
CARE ASSUMED FROM OUTGOING RN. PT RESTING COMFORTABLY IN BED. NO ACUTE DISTRESS NOTED. EVEN AND UNLABORED RESPIRATIONS ON RA. MEDSURG PT. RIJ DOUBLE LUMEN IN PLACE, DRESSING CDI, PERIPHERAL IV INTACT. NO C/O PAIN OR SOB AT THIS TIME. NO DRAINAGE NOTED TO PARACENTESIS SITE, OSTOMY BAG IN PLACE. BED IN LOWEST POSITION. SIDE RAILS UPX2 CALL LIGHT WITHIN REACH. WILL CONTINUE TO MONITOR.
[2019-06-25 20:27] VITALS: BP 91/57
--- NOTE | 2019-06-25 23:58 | NUR ---
PT RESTING COMFORTABLY IN BED. NO ACUTE DISTRESS NOTED. EVEN AND UNLABORED RESPIRATIONS ON RA. NO C/O PAIN, REFUSED SCHEDULED PAIN MEDICATION. RIJ C/L PATENT, DRESSING CDI. BED IN LOWEST POSITION. SIDE RAILS UPX2. CALL LIGHT WITHIN REACH. WILL CONTINUE TO MONITOR.
[2019-06-26 05:37] VITALS: BP 94/65
--- NOTE | 2019-06-26 06:35 | NUR ---
PT RESTED COMFORTABLY IN INTERVALS THROUGHOUT THE SHIFT. ALL NEEDS TENDED TO AND MET. C/O INFLAMMATION/PAIN TO ABD MEDICATED PER EMAR. NO DRAINAGE NOTED TO PARACENTESIS SITE. RIJ CL PATENT, DRESSING CDI. PERIPHERAL IVL PATENT AND INTACT. BED IN LOWEST POSITION. SIDE RAILS UPX2. CALL LIGHT WITHIN REACH. WILL ENDORSE TO ONCOMING SHIFT.
--- NOTE | 2019-06-26 07:20 | NUR ---
SEEN IN BED AAOX4. NO RESP DISTRESS NOTED, BREATHING E/U ON ROOM AIR. DENIES PAIN. TLC TO RIJ WITH DRSG CDI, D5 1/2NS AT 50ML/HR INFUSING WELL. S/L TO RAC INTACT AND PATENT. ABDN DISTEDNED AND HARD, LAST PARACENTESIS DONE 06/19/19. ON REGULAR DIET. 2+EDEMA TO BLE, NOTED, SCD TO BLE INPLACED. CALL LIGHT PLACED WITHIN EASY REACH. SIDERAILS UP X2.
[2019-06-26 07:40] VITALS: BP 105/61
--- NOTE | 2019-06-26 09:30 | NUR ---
DOCTOR COWART AND MEDICAL TEAM AT BEDSIDE FOR AM ROUND. PATIENT MADE AWARE OF PARACENTESIS PLAN TODAY.
--- NOTE | 2019-06-26 10:12 | NUR ---
ULTRASOUND ASCITES EVALUATION DONE AT BEDSIDE. AWAITING FOR RESULT. PATIENT MADE AWARE. AM SCHEDULED MEDS GIVEN.
[2019-06-26 11:22] VITALS: BP 104/66
--- NOTE | 2019-06-26 14:21 | NUR ---
1) Continue regular diet 2) Continue Ensure TID with meals for poor PO intake (this will provide an additional 1050 kcals and 60 g protein)
--- NOTE | 2019-06-26 14:21 | NUR ---
Follow-up Nutrition Assessment- Matthew Keating, [id number] Dx: sepsis, gastroenteritis Labs: Na: 131L, glu: 108H, Ca: 7.6L, P: 2.4L, RBC: 3.27L, H/H: 9.7/29, Plt: 98L Meds: lactinex, Lasix, merrum, morphine sulfate, ms contin, norco, pro-amatine, prisolec, reglan, Synthroid, vancocin, Zofran Diet: Regular PO intake: 50% x 5 meals Weights: 06/18: 193 lbs, 06/20: 187 lbs, 06/21: 189 lbs, 06/22: 190 lbs, 06/25: 241.0 lbs (bedscale, no extra blankets, increased wt likely d/t fluid retention) Skin: paracentesis site to RUQ sutured and secured Bakari: 15 Edema: 2+ edema to BLE Last BM: 06/24/2019 output from stoma bag (10 mL) RD note (06/26/2019): PMH of Harris's sarcoma, pt is taking trial of chemotherapy, upon visit pt was awake and alert, pt reported that he is not eating much because he needs a drain (paracentesis), pt reported he is drinking the ensures. Pt showed me his ABD and it is distended. The pt had not touched his lunch yet and the pt reported he has no appetite. 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 2) Inadequate energy and protein intake related to poor PO intake as evidenced by 10% PO intake since admission and pt reported poor appetite Intervention/RDN Recommendation(s): 1) Continue regular diet 2) Continue Ensure TID with meals for poor PO intake (this will provide an additional 1050 kcals and 60 g protein) Monitor/Evaluate Previous goal: Pt will receive at least 75% of estimated needs from meals and supplements Goal: Pt will receive at least 75% of estimated needs from meals and supplements (ongoing, not met, pt getting at least 50% of estimated needs) Monitor: PO intake, Labs, GI function, Skin integrity, Weights. F/U in 2-3 days as high risk on 06/26-
--- NOTE | 2019-06-26 14:48 | NUR ---
SEEN BY DOCTOR AMRIT VIEIRA.
--- NOTE | 2019-06-26 14:56 | NUR ---
ASSISTED TO BATHROOM, GEN BODY WEAKNESS, NO ANY DISTRESS NOTED,
[2019-06-26 15:48] VITALS: BP 99/60
--- NOTE | 2019-06-26 17:00 | NUR ---
PATIENT APPEARS UPSET AND REQUESTED TO SPEAK TO DOCTOR. DOCTOR KARRIE CAME IN AND EXPLAINED TO PATIENT ABOUT PARACENTESIS PLAN ON FRIDAY INTERPRETED IN [place] BY SHAYNA LEONARD.
--- NOTE | 2019-06-26 18:33 | NUR ---
NO ACUTE DISTRESS THROUGHOUT SHIFT. C/O OF DISCOMFORT TO ABDOMEN. BREATHING E/U ON ROOM AIR, O2SAT 96%. REFUSED MS CONTIN SCHEDULED EVERY 6 HOURS. D5 1/2NS AT 50ML/HR INFUSING WELL TO RIJ TLC. PATIENT VOIDED VIA URINAL YELLOW URINE IN COLOR.
--- NOTE | 2019-06-26 18:50 | NUR ---
PATIENT'S FAMILY MEMBER CALLED AND SPOKE TO LABORATORY CHIEF, PATIENT CURRENT CONDITION AND PLAN UPDATED.
--- NOTE | 2019-06-26 18:52 | NUR ---
REFUSED PAIN MEDICATION OFFERRED. PATIENT IS NOW TALKING TO HIS FAMILY VIA [employer].
--- NOTE | 2019-06-26 19:17 | NUR ---
AWAKE AND ALERT, ORIENTED TO NAME, PLACE, TIME AND SITUATION. SPEECH CLEAR AND APPROPRIATE. BREATHING EVEN AND UNLABORED ON ROOM AIR. LUNG SOUNDS CLEAR. ABD DISTENDED AND FIRM. SALINE LOCK TO RIGHT AC. CENTRAL LINE TO RIGHT IJ. IVF OF D5 1/2 NS AT 50ML/HR INFUSING TO CENTRAL LINE.
--- NOTE | 2019-06-26 21:49 | NUR ---
WAS INFORMED BY CN PT SCHEDULED FOR PLACEMENT OF TUNNELED CATHETER TO ABD AT 0730H. PT ASLEEP AT THIS TIME. WILL INFORM WHEN AWAKE. WITH ORDERS TO KEEP NPO AFTER MIDNIGHT.
--- NOTE | 2019-06-27 00:58 | NUR ---
EYES CLOSED, BREATHING EVEN AND UNLABORED ON ROOM AIR. CALL LIGHT WITHIN ESY REACH.
--- NOTE | 2019-06-27 01:00 | NUR ---
EYES CLOSED, BREATHING EVEN AND UNLABORED ON ROOM AIR. NPO AFTER MIDNIGHT. CALL LIGHT WITHIN EASY REACH.
--- NOTE | 2019-06-27 05:15 | NUR ---
AWAKE AND ALERT, STATED SLEPT WELL. MONGOLIAN SPEAKING NURSE STEPHANY SERVING CONCERT OR LECTURE HALL MANAGER, EXPLAINED TO PT DR. VIEIRA HAS SCHEDULED PLACEMENT OF TUNNELED INTRAABDOMINAL CATHETER TODAY. PT STATED "TAMIR". HOWEVER, WHEN ASKED IF SURGEON HAS EXPLAINED PROCEDURE TO HIM, HE STATED NO. UNABLE TO OBTAIN CONSENT AT THIS TIME. EXPLAINED NEED TO HAVE HIBICLENS BATH, VERBALIZED UNDERSTANDING.
[2019-06-27 05:40] VITALS: BP 102/67
--- NOTE | 2019-06-27 06:53 | NUR ---
REPORT GIVEN TO OR NURSE PHONG
[2019-06-27 07:05] LABS: ALKALINE PHOSPHATASE 129 U/L (46-116); ALT/SGPT 23 U/L (16-63); AST/SGOT 67 U/L (15-37); BILIRUBIN TOTAL 0.39 mg/dL (0.20-1.00); CALCIUM 8.1 mg/dL (8.5-10.1); CARBON DIOXIDE 26.1 mmol/L (21-32); CHLORIDE SERUM 100 mmol/L (98-107); CREATININE SERUM 1.4 mg/dL (0.7-1.3); GFR1 > 60 mL/min; GLUCOSE SERUM 117 mg/dL (74-106); MAGNESIUM 2.3 mg/dL (1.8-2.4); PHOSPHOROUS 2.9 mg/dL (2.5-4.9); POTASSIUM SERUM 4.1 mmol/L (3.5-5.1); SODIUM SERUM 133 mmol/L (136-145)
--- NOTE | 2019-06-27 07:07 | NUR ---
AWAKE AND ALERT, IN NO ACUTE DISTRESS. KEPT NPO SINCE MIDNIGHT. ENDORSED TO NURSE GEGE
[2019-06-27 07:12] VITALS: BP 108/70
[2019-06-27 07:19] LABS: ALBUMIN 1.3 g/dL (3.4-5.0); TOTAL PROTEIN, SERUM 4.8 g/dL (6.4-8.2)
--- NOTE | 2019-06-27 07:30 | NUR ---
PT ENDORSE TO ME THIS MORNING, LAYING IN BED RESTING, REMIANS NPO FOR AM PROCEDURE THIS AM. AA/O X4, BREATHING EVEN AND UNLABORED ON RA, NO ACUTE RESP DISTRESS OR SOB NOTED. EDEMA NOTED +2 BLE/ PULSES PRESENT. ABD DISTENDED NOTED, BOWEL SOUNDS ACTIVE IN ALL FOUR QUADS, VOIDS FREELY, URINAL AT BEDSIDE. GEN WEAKNESS/ AMB. COSTOMY BAG NOTED R SIDE OF ABD. RIJ AND RAC INTACT AND PATENT/ INFUSING AT 50 ML/HR. CALL LIGHT IN REACH. BED IN LOW POSITION. WILL CONTINUE TO MONITOR.
--- NOTE | 2019-06-27 07:45 | NUR ---
PHONG MCDONALD FROM OR ARRIVED TO TAKE PT TO PROCEDURE. PT STABE/ HEPLOCKED.
[2019-06-27 08:03] LABS: BASOPHIL % 0 % (0-2); PLATELET COUNT 80 x10^3mcL (130-400); RED CELL DISTRIBUTION WIDTH 20.1 % (11.5-14.5)
--- NOTE | 2019-06-27 10:15 | NUR ---
PT BACK FROM OR, VS : 103/76 MAP 88, HR 111, TEMP 97, RESP 20 , 96 % RA NO ACUTE REPS DISTRESS OR SOB NOTED. NEW TUNNELED CATH PORT INPLACE TO R LOWER ABD. WILL CONTINUE TO MONITOR
[2019-06-27 10:18] VITALS: BP 103/76
[2019-06-27] MEDS ORDERED: ALD25 PO (12:34)
--- NOTE | 2019-06-27 14:49 | NUR ---
CONNECTED PLEURAL CATH TO RIGHT ABD PORT= 1750 ANA COLOR FLUID COLLECTED. 98/65 MAP 74 96% RA,NO ACUTE RESP DISTRESS NOTED.
[2019-06-27 15:31] VITALS: BP 99/70
--- NOTE | 2019-06-27 16:28 | NUR ---
PT C/O ABD PAIN 07/31, MEDICATED PER EMAR
--- NOTE | 2019-06-27 18:30 | NUR ---
NO ACUTE CHANGES AT THIS TIME, NO ACUTE RESP DISTRESS OR SOB NOTED. TOTAL OUTPUT TO RIGHT PLUERAL CATH TO XDC=[id number] ANA COLOR NOTED. RIJ AND RAC INTACT AND PATENT/ NO REDNESS OR SWELLING NOTED. WILL ENDORSE TO INCOMING RN.
[2019-06-27 19:26] VITALS: BP 82/51
--- NOTE | 2019-06-27 20:00 | NUR ---
RECEIVED PT IN BED, RESTING, ALERT AND ORIENTED. ABLE TO VERBALIZE NEEDS.SPEECH CLEAR .DENIES HEADACHE/DIZZINESS. RESP. EVEN AND UNLABORED. ON ROOM AIR, LUNG SOUNDS CLEAR. SAT. 97% AT THIS TIME. MED-SURG.PT, DENIES CP OR ANY DISCOMFORT AT THIS TIME. ABD. DISTENDED AND FIRM, TUNNELED INTRA-ABD. CATH TO DRAINAGE BAG. PATENT. SITE DRESSING DRY AND INTACT. DRESSING TO CHEMO .SITE DRY AND INTACT. BANDAID TO PARACETHESIS SITE DRY AND INTACT. ABLE TO TURN AND REPOSITION SELF IN BED. ASSISTED WITH HS CARE. CALL LIGHT WITHIN REACH. WILL CONTINUE TO MONITOR.
--- NOTE | 2019-06-27 20:54 | NUR ---
IVF, D51/2NS AT 50ML/HR, INFUSING VIA RIJ TRIPLE LUMEN. SITE CLEAR DRESSING DRY AND INTACT. AFEBRILE AND VITAL SIGNS STABLE.WILL CONTINUE TO MONITOR.
--- NOTE | 2019-06-28 00:20 | NUR ---
REFUSED MS CONTIN. DENIES PAIN OR ANY DISCOMFORT AT THIS TIME. WILL CONTINUE TO MONITOR.
--- NOTE | 2019-06-28 02:38 | NUR ---
NO COMPLAINTS NOTED. RESTING QUIETLY IN BED, WITH EYES CLOSED, APPEARS ASLEEP,EASILY AROUSABLE. RESP. EVEN AND UNLABORED. NO ACUTE DISTRESS NOTED. CALL LIGHT WITHIN REACH. WILL CONTINUE TO MONITOR.
[2019-06-28 05:11] VITALS: BP 92/55
--- NOTE | 2019-06-28 06:13 | NUR ---
AFEBRILE AND VITAL SIGNS STABLE. DUE MEDS GIVEN ORDERED, GLENNA. WELL. DENIES PAIN OR ANY DISCOMFORT AT THIS TIME. RESP. EVEN AND UNLABORED. ON ROOM AIR, NO ACUTE DISTRESS NOTED. IVF INTACT AND INFUSING VIA RIJ TRIPLE LUMEN. TUNNELED INTRA-ABD. CATH INTACT ,TO DRAINAGE BAG, 400MLS SEROSANG. DRAINAGE NOTED. KEPT COMFORTABLE. CALL LIGHT WITHIN REACH. WILL CONTINUE TO MONITOR.
[2019-06-28 06:50] LABS: BASOPHIL % 0 % (0-2); PLATELET COUNT 80 x10^3mcL (130-400); RED CELL DISTRIBUTION WIDTH 20.3 % (11.5-14.5)
[2019-06-28 06:53] LABS: CALCIUM 7.6 mg/dL (8.5-10.1); CARBON DIOXIDE 24.4 mmol/L (21-32); CREATININE SERUM 1.5 mg/dL (0.7-1.3); MAGNESIUM 2.2 mg/dL (1.8-2.4); POTASSIUM SERUM 4.4 mmol/L (3.5-5.1)
--- NOTE | 2019-06-28 07:00 | NUR ---
RECEIVED PT FROM NIGHT RN. AAOX4, SPEECH CLR. RES E/U, NO SOB NOTED. NON TELE, DENIES CHEST PAIN/PRESSURE. +2 EDEMA ON BLE NOTED. LLQ ABDOMEN DRESSING NOTED, CDI AND PATENT. E LEARNING MANAGER RN REPORTED THAT ITS FOR THE CHEMO SITE. BANDAID ON R ABDOMEN NOTED, CDI AND PATENT. R TUNNELED INTRA ABD CATHETER DRAINING SEROSANGUINOUS NOTED. RIJ INFUSING D51/2 NS AT 50 ML AND IV TO RAC SL, W NO REDNESS, SIGNS OF INFILTRATION NOTED. SAFETY PRECAUTIONS IN PLACE, CALL LIGHT WITHIN REACH.
--- NOTE | 2019-06-28 07:30 | NUR ---
DR ZAMORA AT BEDSIDE TO INSTRUCT PATIENT HOW TO USE TUNNELED INTRA-ABDOMINAL CATHETER.
[2019-06-28 08:02] VITALS: BP 101/63
--- NOTE | 2019-06-28 11:00 | NUR ---
INSTRUCTED AND DEMONSTRATED PT HOW TO CLEAN AND CHANGE DRESSING TO LLQ TUNNELED INTRA ABDOMINAL CATH. INSTRUCTED PT TO CHANGE DRESSING WEEKLY OR WHEN IT IS SOILED. INSTRUCTED PT HOW TO MEASURE OUTPUT DAILY AND TO DRAIN 2L OUT EVERY 24 HOURS. DEMONSTRATED HOW TO DRAIN CATHETER AND MEASURE OUTPUT USING GRADUATED CYLINDER. GAVE PT SUPPLIES TO CHANGE AND CLEAN DRESSING.
[2019-06-28 11:50] VITALS: BP 97/65
--- NOTE | 2019-06-28 13:00 | NUR ---
CASE MANAGEMENT CALLED AND GAVE NUMBER OF INSURANCE COMPANY, , FOR PATIENT TO CALL. INSURANCE NUMBER WRITTEN ON DISCHARGE PAPERWORK FOR PATIENT TO SEE.
[2019-06-28 13:17] VITALS: BP 97/65
[2019-06-28 13:18] VITALS: BP 97/65
--- NOTE | 2019-06-28 13:55 | NUR ---
PT AAOX4 UPON DISCHARGE, AND PT IS DISCHARGED TO HOME. PRINTED AND EXPLAINED DISCHARGE INSTRUCTIONS TO PATIENT. DISCHARGE INSTRUCTIONS INCLUDE FOLLOW UP WITH PCP, WORSENING SYMPTOMS, AND MEDICATIONS. PT VERBALIZED UNDERSTANDING. ALL NEEDS MET AND CONCERNS ADDRESSED. R IJ REMOVED AND BLUE TIP INTACT. IV SITE TO R AC REMOVED AND CATHETER INTACT. ID WRISTBANDS REMOVED AND ALL BELONGINGS ARE WITH PATIENT. HOME MEDICATIONS ARE TAKEN FROM PHARMACY AND GIVEN TO PATIENT. RESOURCE RN TAKEN PT DOWN VIA WHEELCHAIR.
== END 2019-06-28 13:55 | disposition home or self-care (01) | DRG 720 ==
LOC: ED 13:45 → DU 18:10 → IC 18:10 → MU 18:10 → IC 22:00 → DU 06-24 14:25 → MU 06-25 12:15
PROVIDERS: Emergency Medicine; Internal Medicine; ADMIT Internal Medicine
PROC: 0W9G3ZZ Drainage of Peritoneal Cavity, Percutaneous Approach (ICD-10-PCS; principal; 2019-06-21)
PROC: 0W9G30Z Drainage of Peritoneal Cavity with Drainage Device, Percutaneous Approach (ICD-10-PCS; 2019-06-27)
DX: A41.9 Sepsis, unspecified organism (principal); N17.0 Acute kidney failure with tubular necrosis; R65.21 Severe sepsis with septic shock; E43 Unspecified severe protein-calorie malnutrition; K65.2 Spontaneous bacterial peritonitis; C41.9 Malignant neoplasm of bone and articular cartilage, unspecified; R18.0 Malignant ascites; E83.51 Hypocalcemia; C78.6 Secondary malignant neoplasm of retroperitoneum and peritoneum; C78.7 Secondary malignant neoplasm of liver and intrahepatic bile duct; D69.6 Thrombocytopenia, unspecified; R41.82 Altered mental status, unspecified; D63.8 Anemia in other chronic diseases classified elsewhere; E03.9 Hypothyroidism, unspecified; Z79.899 Other long term (current) drug therapy; Z93.3 Colostomy status; Z88.0 Allergy status to penicillin
CPT/HCPCS: 82962; 84439; 87046; 87046-59; 87116; 87206; A4367; G0378; J1642; J1644; J1940; J1956; J2001; J2060; J2185; J2250; J2270; J2405; J2765; J3010; J3370; J3490; J7030; J7040; J7050; P9047; Q0092

== ENCOUNTER 2019-07-08 13:05 | Inpatient (IN) | payer MEDICAID ==
[~2019-07-08] VITALS: Ht 172.7 cm; Wt 88.9 kg
[~2019-07-08 13:05] MED LIST changes: +ALD25 PO; +BACTRIM DS1 TAB PO; +CLARITIN LIQUI-10 MG PO; +COMPAZINE10 M1 PO; +DIPHENOX/ATROPI1 TA1 PO; +IMODIUM A-D2 M4 PO; +LASIX20 MG PO; +MORPHABOND ER30 MG PO; +MS CONTIN15 M1 PO; +PANTOPRAZOLE SO20 M1 PO; +SYN15 PO; +TIROSINT75 MC1 PO; +TYL650S PO; +ZOFRAN8 MG PO
[2019-07-08 13:09] VITALS: Ht 172.7 cm; Wt 88.9 kg
[2019-07-08 14:33] LABS: BASOPHIL % 0.3 % (0-2)
[2019-07-08 14:38] LABS: PLATELET COUNT 123 x10^3mcL (130-400); RED CELL DISTRIBUTION WIDTH 20.9 % (11.5-14.5)
[2019-07-08 15:06] LABS: rbc morphology (normal/abnorm) ABNORMAL (NORMAL)
[2019-07-08 15:07] LABS: ALBUMIN 1.2 g/dL (3.4-5.0); BILIRUBIN TOTAL 0.2 mg/dL (0.20-1.00); CALCIUM 7.9 mg/dL (8.5-10.1); CARBON DIOXIDE 22.5 mmol/L (21-32); CREATININE SERUM 2.3 mg/dL (0.7-1.3); POTASSIUM SERUM 4.3 mmol/L (3.5-5.1); TOTAL PROTEIN, SERUM 5.3 g/dL (6.4-8.2)
[2019-07-08 16:24] LABS: CHOLESTEROL/HDL RATIO 3.7; MAGNESIUM 1.8 mg/dL (1.8-2.4); PHOSPHOROUS 3.3 mg/dL (2.5-4.9)
[2019-07-08 16:27] LABS: FREE T4 0.62 ng/dL (0.76-1.46); T3 TOTAL 0.34 ng/mL
[2019-07-08 16:28] LABS: FREE THYROXINE INDEX 0.9 ug/dL (1.4-4.5); T4(THYROXINE) 3.2 ug/dL (4.7-13.3)
[2019-07-08 16:33] LABS: UA SPECIFIC GRAVITY 1.025 (1.005-1.035); microscopic required? YES; urine erythrocyte 3+ (NEGATIVE)
[2019-07-08 17:57] VITALS: BP 101/68
[2019-07-08 21:30] VITALS: BP 96/60
[2019-07-09 04:02] LABS: APPEARANCE FLUID HAZY; COLOR FLUID DARK YELLOW; RBC FLUID 10750 /cumm; SOURCE FLUID PERITONEAL; WBC FLUID 176 /cumm
[2019-07-09 04:14] LABS: LYMPHOCYTE FLUID 75 %
[2019-07-09 05:05] VITALS: BP 99/60
[2019-07-09 06:35] LABS: CALCIUM 7.8 mg/dL (8.5-10.1); CARBON DIOXIDE 25.4 mmol/L (21-32); CREATININE SERUM 2.1 mg/dL (0.7-1.3); POTASSIUM SERUM 5.3 mmol/L (3.5-5.1)
[2019-07-09 06:41] LABS: BASOPHIL % 0.4 % (0-2)
[2019-07-09 06:45] LABS: IRON 17 ug/dL (65-170); TOTAL IRON BINDING CAPACITY 143 ug/dL (250-450)
[2019-07-09 07:06] LABS: PLATELET COUNT 120 x10^3mcL (130-400); RED CELL DISTRIBUTION WIDTH 20.8 % (11.5-14.5)
[2019-07-09 08:18] VITALS: BP 139/89
[2019-07-09 15:52] VITALS: BP 97/61
[2019-07-09 20:38] VITALS: BP 93/64
[2019-07-10 05:48] VITALS: BP 100/64
[2019-07-10 07:26] LABS: CALCIUM 7.8 mg/dL (8.5-10.1); CREATININE SERUM 2.1 mg/dL (0.7-1.3); POTASSIUM SERUM 4.4 mmol/L (3.5-5.1)
[2019-07-10 07:37] LABS: BASOPHIL % 0 % (0-2); PLATELET COUNT 116 x10^3mcL (130-400); RED CELL DISTRIBUTION WIDTH 20.8 % (11.5-14.5)
[2019-07-10 07:40] VITALS: BP 93/53
[2019-07-10 11:57] VITALS: BP 99/55
[2019-07-10 15:19] VITALS: BP 97/68
[2019-07-10 16:24] VITALS: BP 99/61
[2019-07-10 20:32] VITALS: BP 96/64
[2019-07-11 05:44] VITALS: BP 96/60
[2019-07-11 06:38] LABS: CALCIUM 7.9 mg/dL (8.5-10.1); CARBON DIOXIDE 26.8 mmol/L (21-32); CREATININE SERUM 1.9 mg/dL (0.7-1.3)
[2019-07-11 06:50] LABS: POTASSIUM SERUM 5.6 mmol/L (3.5-5.1)
[2019-07-11 07:14] LABS: BASOPHIL % 0 % (0-2); PLATELET COUNT 118 x10^3mcL (130-400); RED CELL DISTRIBUTION WIDTH 20.7 % (11.5-14.5)
[2019-07-11 08:19] VITALS: BP 96/69
[2019-07-11 10:38] VITALS: BP 96/69; BP 98/52
[2019-07-11 11:45] LABS: rbc morphology (normal/abnorm) ABNORMAL (NORMAL)
== END 2019-07-11 13:05 | disposition home or self-care (01) | DRG 720 ==
LOC: ED 13:05 → DU 15:32
PROVIDERS: Emergency Medicine; Internal Medicine Nephrology; ADMIT Student in an Organized Health Care Education/Training Program
DX: A41.9 Sepsis, unspecified organism (principal); E43 Unspecified severe protein-calorie malnutrition; N17.9 Acute kidney failure, unspecified; D69.49 Other primary thrombocytopenia; K65.2 Spontaneous bacterial peritonitis; C78.7 Secondary malignant neoplasm of liver and intrahepatic bile duct; E83.51 Hypocalcemia; C79.51 Secondary malignant neoplasm of bone; R18.8 Other ascites; E87.1 Hypo-osmolality and hyponatremia; E86.0 Dehydration; E03.9 Hypothyroidism, unspecified; D63.8 Anemia in other chronic diseases classified elsewhere; E87.5 Hyperkalemia; R74.0 Nonspecific elevation of levels of transaminase and lactic acid dehydrogenase [LDH]; Z88.0 Allergy status to penicillin
CPT/HCPCS: 84439; C9113; G0378; J0692; J1642; J2405; J3370; J3490; J7030; J7040; Q0092